=== PATIENT | male | born 1970 | race Hispanic/Latino ===

== ENCOUNTER 2020-07-05 15:45 | Emergency (ER) | payer OTHER, MEDICARE ==
[2020-07-05] MEDS ORDERED: LIDOCAINE HCL MPF 1% 5ML VIAL ONE (16:19)
== END 2020-07-05 17:29 | disposition home or self-care (01) ==
LOC: EDH 15:45
DX: L02.415 Cutaneous abscess of right lower limb (principal); E11.9 Type 2 diabetes mellitus without complications; Z72.0 Tobacco use
CPT/HCPCS: 10060; 82948 ×2; 99283; J3490

== ENCOUNTER 2021-04-30 07:17 | Observation (INO) | payer OTHER, MEDICARE ==
[~2021-04-30] VITALS: Ht 170.2 cm; Wt 69.6 kg
[2021-04-30] VITALS (7 sets, daily range): BP systolic 110–137; BP diastolic 59–84
[2021-04-30] MEDS ORDERED: SOLU-MEDROL 125MG VIAL IVP SCH ×2 (09:15→11:30)
[2021-04-30] MEDS: NACL 0.9% 1000ML 1,000 ML IV SCH ×2 (10:33→10:41)
[2021-04-30] MEDS ORDERED: FAMOTIDINE 20MG VIAL IV SCH (11:30)
[2021-04-30] MEDS ORDERED: APAP-CODEINE 300/30MG TAB PO PRN (17:30)
[2021-04-30 17:35] LABS: BASOPHILS % (AUTO) 0.2 % (0.0-5.0); HEMATOCRIT 47.4 % (42-54); LYMPHOCYTES % (AUTO) 9.5 % (21.0-51.0); MEAN CORPUSCULAR HEMOGLOBIN 31.2 pg (27.0-33.0); MEAN CORPUSCULAR HGB CONC 33.8 g/dL (32.0-36.0); MEAN CORPUSCULAR VOLUME 92.4 fL (79-99); MONOCYTES % (AUTO) 0.5 % (3.0-13.0); NEUTROPHILS % (AUTO) 89.6 % (40.0-77.0); PLATELET COUNT (AUTO) 265 K/uL (130-400); RED BLOOD CELL COUNT(AUTO) 5.13 MIL/uL (4.50-6.20); RED CELL DISTRIBUTION WIDTH 13.6 % (11.0-15.5)
[2021-04-30 17:55] LABS: CREATININE 0.7 mg/dL (0.5-1.5); POTASSIUM 5.2 mmol/L (3.5-5.1)
[2021-04-30 18:00] LABS: ALBUMIN 3.5 g/dL (3.5-5.0); BILIRUBIN,TOTAL 1.1 mg/dL (0.2-1.0)
[2021-04-30] MEDS: GABAPENTIN 100 MG CAPSULE PO SCH (21:44)
[2021-04-30] MEDS: BACLOFEN 10 MG TABLET PO SCH (21:44)
[2021-05-01] VITALS (8 sets, daily range): BP systolic 96–136; BP diastolic 53–74
[2021-05-01] MEDS: GABAPENTIN 100 MG CAPSULE PO SCH ×3 (09:02→21:23)
[2021-05-01] MEDS: BACLOFEN 10 MG TABLET PO SCH ×2 (09:02→21:23)
[2021-05-01 09:07] LABS: BASOPHILS % (AUTO) 0.3 % (0.0-5.0); EOSINOPHILS % (AUTO) 0.3 % (0.0-8.0); HEMATOCRIT 43.1 % (42-54); LYMPHOCYTES % (AUTO) 26.8 % (21.0-51.0); MEAN CORPUSCULAR HEMOGLOBIN 30.4 pg (27.0-33.0); MEAN CORPUSCULAR HGB CONC 33.2 g/dL (32.0-36.0); MEAN CORPUSCULAR VOLUME 91.5 fL (79-99); MONOCYTES % (AUTO) 8.8 % (3.0-13.0); NEUTROPHILS % (AUTO) 63.6 % (40.0-77.0); PLATELET COUNT (AUTO) 266 K/uL (130-400); RED BLOOD CELL COUNT(AUTO) 4.71 MIL/uL (4.50-6.20); RED CELL DISTRIBUTION WIDTH 13.5 % (11.0-15.5); WHITE BLOOD COUNT (AUTO) 10.4 K/uL (4.8-10.8)
[2021-05-01 09:20] LABS: ALBUMIN 3.1 g/dL (3.5-5.0); BILIRUBIN,TOTAL 0.5 mg/dL (0.2-1.0); CREATININE 0.9 mg/dL (0.5-1.5); POTASSIUM 3.9 mmol/L (3.5-5.1); TOTAL PROTEIN, SERUM 6.8 g/dL (6.0-8.3)
[2021-05-01] MEDS ORDERED: DEXAMETHASONE 4 MG TAB PO SCH (21:00)
[2021-05-02 04:05] VITALS: BP 97/59
[2021-05-02 05:23] LABS: BASOPHILS % (AUTO) 0.2 % (0.0-5.0); HEMATOCRIT 44.2 % (42-54); LYMPHOCYTES % (AUTO) 12.9 % (21.0-51.0); MEAN CORPUSCULAR HGB CONC 33.9 g/dL (32.0-36.0); MEAN CORPUSCULAR VOLUME 91.3 fL (79-99); MONOCYTES % (AUTO) 2.3 % (3.0-13.0); NEUTROPHILS % (AUTO) 84.3 % (40.0-77.0); PLATELET COUNT (AUTO) 274 K/uL (130-400); RED BLOOD CELL COUNT(AUTO) 4.84 MIL/uL (4.50-6.20); RED CELL DISTRIBUTION WIDTH 13.7 % (11.0-15.5); WHITE BLOOD COUNT (AUTO) 8.8 K/uL (4.8-10.8)
[2021-05-02 06:03] LABS: ALBUMIN 3.3 g/dL (3.5-5.0); BILIRUBIN,TOTAL 0.6 mg/dL (0.2-1.0); CREATININE 0.9 mg/dL (0.5-1.5); POTASSIUM 4.4 mmol/L (3.5-5.1); TOTAL PROTEIN, SERUM 7.4 g/dL (6.0-8.3)
[2021-05-02] MEDS: BACLOFEN 10 MG TABLET PO SCH (07:58)
[2021-05-02 08:17] VITALS: BP 139/88
[2021-05-02] MEDS ORDERED: DEXAMETHASONE 4 MG TAB PO SCH (09:00)
[2021-05-02] MEDS: GABAPENTIN 100 MG CAPSULE PO SCH (09:48)
[2021-05-02 11:23] VITALS: BP 94/48
[2021-05-02] MEDS ORDERED: METH4TAB3 PO (13:39)
[2021-05-02] MEDS ORDERED: GABA100C PO (13:39)
[2021-05-02] MEDS ORDERED: TYL3B PO (13:39)
[2021-05-02 16:07] VITALS: BP 107/64
== END 2021-05-02 17:15 | disposition home or self-care (01) ==
LOC: EDH 07:17 → EDHIP 14:53 → INTOOBSV 14:53 → 3DH 05-01 00:51 → EDHIP 05-01 01:23 → 3AH 05-01 08:49
PROVIDERS: ADMIT Internal Medicine; ATTEND Internal Medicine
DX: S32.058A Other fracture of fifth lumbar vertebra, initial encounter for closed fracture (principal); M51.17 Intervertebral disc disorders with radiculopathy, lumbosacral region; M43.16 Spondylolisthesis, lumbar region; I50.9 Heart failure, unspecified; G89.29 Other chronic pain; F17.210 Nicotine dependence, cigarettes, uncomplicated; Z91.19 Patient's noncompliance with other medical treatment and regimen; Z96.642 Presence of left artificial hip joint; W20.8XXA Other cause of strike by thrown, projected or falling object, initial encounter; Y93.89 Activity, other specified; Y92.89 Other specified places as the place of occurrence of the external cause
CPT/HCPCS: 36415 ×3; 70450; 71045; 72040; 72070; 72100; 72131; 72148; 80053 ×3; 83735; 85025 ×3; 96374; 97039 ×2; 97116; 97161; 99285; G0378 ×49; G8978; G8979; G8980; G8981; G8982; G8983; J2930; J7030; J8540 ×2

== ENCOUNTER 2021-09-27 20:57 | Emergency (ER) | payer OTHER, MEDICARE ==
[~2021-09-27] VITALS: Ht 170.2 cm; Wt 68.9 kg
[~2021-09-27 20:57] MED LIST: GABA100C PO; METH4TAB3 PO; TYL3B PO
[2021-09-28] MEDS ORDERED: META800T72 PO (00:57)
[2021-09-28] MEDS ORDERED: ACET1TAB25 PO (00:57)
[2021-09-28] MEDS ORDERED: ORPHENADRINE CITRATE 30 MG/ML ML IM ONE (01:00)
[2021-09-28] MEDS ORDERED: KETOROLAC 60 MG VIAL (30MG/ML) IM ONE (01:00)
[2021-09-28 01:13] VITALS: BP 122/56
== END 2021-09-28 01:31 | disposition home or self-care (01) ==
LOC: EDH 20:57
DX: M54.50 Low back pain, unspecified (principal); F17.200 Nicotine dependence, unspecified, uncomplicated; Z79.1 Long term (current) use of non-steroidal anti-inflammatories (NSAID); Z79.52 Long term (current) use of systemic steroids; Z79.899 Other long term (current) drug therapy
CPT/HCPCS: 96372 ×2; 99283; J1885; J2360

== ENCOUNTER 2021-10-17 20:29 | Emergency (ER) | payer OTHER, MEDICARE ==
[~2021-10-17] VITALS: Ht 170.2 cm; Wt 74.8 kg
[~2021-10-17 20:29] MED LIST changes: +ACET1TAB25 PO; +META800T72 PO
[2021-10-17] MEDS ORDERED: TETANUS/DIPHTHERIA TOXOID [ADULT] 0.5 ML VIAL IM ONE ×2 (22:30→22:38)
[2021-10-17] MEDS ORDERED: CLINDAMYCIN 150 MG CAP PO ONE (22:30)
[2021-10-17] MEDS ORDERED: HYDROCODONE/ACETAMINOPHEN 5/325 MG TAB PO ONE (23:00)
[2021-10-17] MEDS ORDERED: IBUPROFEN 600 MG TABLET PO ONE (23:00)
[2021-10-17] MEDS ORDERED: LIDOCAINE HCL 1% 20 ML VIAL INJ SCH (23:00)
[2021-10-17] MEDS ORDERED: CEFTRIAXONE 1G VIAL IM ONE (23:00)
[2021-10-17] MEDS ORDERED: CLIN-141 PO (23:24)
[2021-10-17] MEDS ORDERED: MELO7.5T12 PO (23:25)
[2021-10-17 23:37] VITALS: BP 129/79
== END 2021-10-17 23:39 | disposition home or self-care (01) ==
LOC: EDH 20:29
DX: S60.444A External constriction of right ring finger, initial encounter (principal); S60.521A Blister (nonthermal) of right hand, initial encounter; L02.511 Cutaneous abscess of right hand; L03.113 Cellulitis of right upper limb; F17.200 Nicotine dependence, unspecified, uncomplicated; Z79.1 Long term (current) use of non-steroidal anti-inflammatories (NSAID); Z79.52 Long term (current) use of systemic steroids; Z79.899 Other long term (current) drug therapy; W49.04XA Ring or other jewelry causing external constriction, initial encounter; Y93.89 Activity, other specified; Y92.89 Other specified places as the place of occurrence of the external cause; Y99.8 Other external cause status
CPT/HCPCS: 10140; 90471; 90714; 96372; 99283; J0696; 10060

== ENCOUNTER 2022-01-29 21:48 | Emergency (ER) | payer OTHER, MEDICARE ==
[~2022-01-29] VITALS: Ht 170.2 cm; Wt 64.0 kg
[~2022-01-29 21:48] MED LIST changes: +CLIN-141 PO; +MELO7.5T12 PO
[2022-01-29 21:50] VITALS: BP 115/73
[2022-01-29 22:21] LABS: BASOPHILS % (AUTO) 0.3 % (0.0-5.0); EOSINOPHILS % (AUTO) 0.5 % (0.0-8.0); HEMATOCRIT 41.4 % (42-54); LYMPHOCYTES % (AUTO) 22.6 % (21.0-51.0); MEAN CORPUSCULAR HEMOGLOBIN 30.2 pg (27.0-33.0); MEAN CORPUSCULAR HGB CONC 34.3 g/dL (32.0-36.0); MEAN CORPUSCULAR VOLUME 88.1 fL (79-99); MONOCYTES % (AUTO) 10.7 % (3.0-13.0); NEUTROPHILS % (AUTO) 65.6 % (40.0-77.0); PLATELET COUNT (AUTO) 241 K/uL (130-400); WHITE BLOOD COUNT (AUTO) 5.7 K/uL (4.8-10.8)
[2022-01-29] MEDS ORDERED: DICYCLOMINE 20MG (10MG/ML) AMP IM STA (22:25)
[2022-01-29] MEDS ORDERED: 0.9%NACL 1000ML 1,000 ML IV ONE (22:30)
[2022-01-29] MEDS ORDERED: ONDANSETRON 4MG INJ IVP ONE (22:30)
[2022-01-29] MEDS ORDERED: FAMOTIDINE 20MG VIAL IV ONE (22:30)
[2022-01-29 22:42] LABS: ALBUMIN 3.2 g/dL (3.5-5.0); BILIRUBIN,TOTAL 0.9 mg/dL (0.2-1.0); CREATININE 0.9 mg/dL (0.5-1.5); POTASSIUM 3.2 mmol/L (3.5-5.1); TOTAL PROTEIN, SERUM 7.1 g/dL (6.0-8.3)
[2022-01-29 23:30] LABS: APPEARANCE,URINE Clear (CLEAR); BILIRUBIN,URINE Negative (NEGATIVE); COLOR,URINE Yellow (YELLOW); GLUCOSE, URINE (UA) Negative (NEGATIVE); KETONES,URINE Trace mg/dL (NEGATIVE); LEUKOCYTE ESTERASE ,URINE Trace (NEGATIVE); NITRATE,URINE Negative (NEGATIVE); OCCULT BLOOD,URINE Negative (NEGATIVE); PH,URINE 5.5 (5.0-8.0); PROTEIN,URINE Trace mg/dL (NEGATIVE)
[2022-01-29] MEDS ORDERED: POTASSIUM BICARB/CIT AC 25 MEQ TABLET.EFF PO ONE (23:30)
[2022-01-29] MEDS ORDERED: ACET-66 PO (23:33)
[2022-01-29] MEDS ORDERED: L.AC1CAP6 PO (23:33)
[2022-01-29] MEDS ORDERED: ONDA4TAB10 PO (23:33)
[2022-01-29] MEDS ORDERED: DICY20TA2 PO (23:33)
[2022-01-29 23:48] LABS: BACTERIA,URINE Rare /HPF (None Seen); MUCUS,URINE Few LPF (None Seen); RBC,URINE 0-1 /HPF (0-1); SQUAMOUS EPITHELIAL CELL,UR 0-2 /HPF (0-2); WBC,URINE 0-1 /HPF (0-1)
== END 2022-01-30 00:07 | disposition home or self-care (01) ==
LOC: EDH 21:48
DX: K52.9 Noninfective gastroenteritis and colitis, unspecified (principal); E87.6 Hypokalemia; M19.90 Unspecified osteoarthritis, unspecified site; F17.210 Nicotine dependence, cigarettes, uncomplicated; Z98.890 Other specified postprocedural states; Z79.899 Other long term (current) drug therapy
CPT/HCPCS: 36415; 80053; 81001; 83690; 84484; 85025; 93005; 96361; 96372; 96374; 96375; 99284; J0500; J2405; J3490; J7030

== ENCOUNTER 2023-10-31 00:27 | Emergency (ER) | payer MEDICARE, OTHER ==
[~2023-10-31] VITALS: Ht 167.6 cm; Wt 73.5 kg
[~2023-10-31 00:27] MED LIST changes: +ACET-2079 PO; +ACET-66 PO; -ACET1TAB25 PO; +DICY20TA2 PO; +L.AC1CAP6 PO; +ONDA4TAB10 PO
[2023-10-31 01:28] LABS: SARS-CoV-2, RNA, NAAT NEGATIVE SARS CoV-2 (NEGATIVE)
[2023-10-31 01:32] LABS: INFLUENZA TYPE B Negative For Type B (NEGATIVE)
[2023-10-31 01:39] LABS: INFLUENZA TYPE A Positive For Type A (NEGATIVE)
[2023-10-31] MEDS ORDERED: OSEL75 PO (01:41)
[2023-10-31] MEDS ORDERED: ALBU90AE2 IH (01:41)
[2023-10-31] MEDS ORDERED: PRED20TA3 PO (01:41)
[2023-10-31] MEDS ORDERED: ONDA-104 PO (01:41)
[2023-10-31] MEDS ORDERED: IBUP-1493 PO (01:42)
[2023-10-31 01:46] VITALS: PULSE 89; RESP 14
[2023-10-31] MEDS ORDERED: PREDNISONE 20 MG TABLET PO ONE (02:00)
[2023-10-31] MEDS ORDERED: IPRATROPIUM/ALBUTEROL SULFATE 3 ML SOLUTION IH ONE (02:00)
[2023-10-31] MEDS ORDERED: IBUPROFEN 800 MG TAB PO ONE (02:00)
[2023-10-31 02:11] VITALS: TEMP 99
[2023-10-31 03:00] VITALS: BP 129/79; PULSE 86; RESP 18; O2SAT 96
== END 2023-10-31 03:02 | disposition home or self-care (01) ==
LOC: EDH 00:27
DX: J44.1 Chronic obstructive pulmonary disease with (acute) exacerbation (principal); J10.1 Influenza due to other identified influenza virus with other respiratory manifestations; F17.200 Nicotine dependence, unspecified, uncomplicated; Z79.1 Long term (current) use of non-steroidal anti-inflammatories (NSAID); Z79.52 Long term (current) use of systemic steroids; Z20.822 Contact with and (suspected) exposure to COVID-19
CPT/HCPCS: 99283; 87635; 87880; 87804 ×2; 94640; C9803